=== PATIENT | female | born 1950 | race Caucasian/White ===

== ENCOUNTER 2021-09-28 19:57 | Emergency (ER) | payer MEDICARE, BC, SELFPAY ==
[2021-09-28 21:45] VITALS: BP 118/69; PULSE 82; RESP 14; TEMP 36.6; O2SAT 97; BMI 21.9
--- NOTE | 2021-09-28 22:33 | ED.GENADULT ---
HPI - General Adult General Chief complaint: Animal Bite Stated complaint: spider bite getting worse Time Seen by Provider: 09/28/21 22:26 Source: patient Mode of arrival: ambulatory Limitations: no limitations History of Present Illness HPI narrative: Patient comes emergency room complaining of a spider bite. Patient states that 5 days ago she saw a spider in her left arm, and then the next day she started developing small blisters in her left wrist. Patient states that it initially burned a lot and then it became very itchy. Patient states that later in the day, she also noticed that in her upper arms she had similar vesicles. Related Data Previous Rx's Medication Instructions Recorded hydrocortisone 2.5 % topical 1 appl topical TID #20 grams 09/28/21 ointment pramoxine-calamine 1 %-8 % lotion 1 appl topical QID PRN itching 09/28/21 (Calamine Medicated) #177 mL Allergies Allergy/AdvReac Type Severity Reaction Status Date / Time No Known Allergies Allergy Verified 09/28/21 22:33 Review of Systems Review of Systems: Constitutional : No Weight loss, No Fever, No Chills, No Night Sweats, No Fatigue, No Malaise ENT/Mouth : No Hearing loss, No Ear Pain, No Nasal Congestion, No Sinus Pain, No Hoarseness, No sore throat, No Rhinorrhea, No Swallowing Difficulty Eyes: No Eye Pain, No Swelling, No Redness, No Foreign Body, No Discharge, No Vision Changes Cardiovascular : No Chest Pain, No SOB, No Dyspnea on Exertion, No Orthopnea, No Edema, No Palpitations Respiratory : No Cough, No Sputum, No Wheezing, No Smoke Exposure, No Dyspnea Gastrointestinal : No Nausea, No Vomiting, No Diarrhea, No Constipation, No abdominal Pain, No Hematochezia, No Melena Genitourinary : no irregular bleeding, No Dysuria, No Urinary Frequency, No Hematuria, No Urinary Incontinence, No Urgency, No Flank Pain, No Urinary Flow Changes, No Hesitancy Musculoskeletal : No joint pain, No Myalgias, No Joint Swelling Skin : Vesicular rash and left forearm Neuro : No Weakness, No Numbness, No Paresthesias, No Loss of Consciousness, No Dizziness, No Headache Psych : No Anxiety/Panic, No Depression, No SI/HI/AH/VH, No Social Issues, Heme/Lymph: No Bruising, No Bleeding,No Lymphadenopathy Endocrine : No Polyuria, No Polydipsia, No Temperature Intolerance Physical Exam ED Vital Signs: Vital Signs - 24 hr 09/28/21 21:45 Temperature 97.8 F Pulse Rate 82 Respiratory Rate 14 Blood Pressure 118/69 Pulse Oximetry 97 Oxygen Delivery Method Room Air BMI result Body Mass Index 21.9 Const Other: Appearance: Alert. Oriented X3. No acute distress. Eyes: Pupils equal, round and reactive to light. ENT: Pharynx normal. Neck: Normal inspection. Neck supple. No lymph nodes noted. No crepitus CVS: Normal heart rate and rhythm. Pulses normal. Normal S1 and S2 Respiratory: No respiratory distress. Breath sounds normal. No Wheezing. No rales Abdomen: Soft and nontender. No rigidity. No distention. Skin: Skin warm and dry. Patient has a small vesicular rash in the left wrist on the forearm, patient also has linear vesicular rash in her forearm. No cellulitis Extremities: No lower extremity edema. No Lacerations. No Rash Neuro: Oriented X 3. No motor deficit. No sensory deficit. Moving all extremities. No slurred speech. CN 2 through 12 grossly intact Psych: calm, cooperative, normal affect Course Course Course Narrative: I discussed the physical exam with the patient, the lesions do not seem like a spider bite, it looks like poison elenita. Patient states that before she saw the spider in her room, patient was weed whacking. Patient was given 1 dose of p.o. prednisone here in the emergency room. And will continue applying topical hydrocortisone. Discharge Plan Discharge Clinical Impression: Poison elenita Patient Disposition: Home, Self-Care Instructions: Poison Elenita (ED) Additional Instructions: Please follow-up with your primary care physician tomorrow. If you have any worsening or new symptoms, please return to the emergency room or call 911 Prescriptions: New hydrocortisone 2.5 % ointment 1 appl topical TID Qty: 20 0RF Calamine Medicated 1-8 % lotion 1 appl topical QID PRN (Reason: itching) Qty: 177 0RF
[2021-09-28] MEDS: predniSONE 20 MG TABLET 60 MG PO (22:52)
== END 2021-09-29 00:11 | disposition home or self-care (01) ==
PROVIDERS: Emergency Provider Emergency Medicine
DX: L23.7 Allergic contact dermatitis due to plants, except food (principal)
CPT/HCPCS: 99282; 99283